=== PATIENT | female | born 1975 | race Caucasian/White ===

== ENCOUNTER 2016-05-14 17:29 | Emergency (ER) | payer MEDICARE, MEDICAID ==
[2016-05-14 17:45] VITALS: BP 136/76
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
[2016-05-14 18:17] LABS: Urine Bilirubin 1 mg/dl (NEGATIVE); Urine Blood 250 /ul (NEGATIVE); Urine Ketone Negative (NEGATIVE); Urine Nitrite Negative (NEGATIVE); Urine Protein 30 mg/dL (NEGATIVE); Urine Urobilinogen Normal (NORMAL); Urine pH 7.5 pH (5.0-7.0)
[2016-05-14] MEDS ORDERED: HYDROcodone/ACETAMINOPHEN 1 EACH TABLET PO ONE (18:22)
[2016-05-14] MEDS ORDERED: HYDROcodone/ACETAMINOPHEN 1 EACH TABLET ONE (18:26)
[2016-05-14 18:30] LABS: Urine Appearance Clear; Urine Color Yellow; Urine RBC 0-5 /hpf (0-5); Urine WBC None Seen /hpf (0-5)
[2016-05-14 18:31] LABS: Urine Bacteria 2+; Urine Fine Granular Cast 0-5 /LPF; Urine Mucus Few - 1+
[2016-05-14 18:37] LABS: Hematocrit 50.4 % (37.0-47.0); Hemoglobin 17.2 gm/dL (12.5-16.0); Mean Corpuscular Hemoglobin 30.7 pg (27-31); Mean Corpuscular Hgb Conc 34.1 g/dl (32-36); Mean Platelet Volume 8.8 fl (6.0-9.5); Neutrophil # 7.8 K/mm3 (1.3-6.0); Neutrophil % 59.6 % (42-75.0); Platelet Count 402 K/mm3 (150-450); Red Cell Distribution Width 13.4 % (11.5-14.0); White Blood Count 13.1 K/mm3 (4.0-10.5)
[2016-05-14 18:51] LABS: Albumin * 4.5 gm/dl (3.4-5.0); Anion Gap 17.4 mmol/L (6.8-13.8); BUN/Creatinine Ratio 12.3 (9.0-21.6); Bilirubin, Total 0.7 mg/dL (0.0-1.1); Ca. Corrected For Albumin 9.3 mg/dL (8.4-10.2); Carbon Dioxide 25.6 mmol/L (24-32.6); Total Protein 8.5 gm/dL (6.2-8.2)
--- OUTSIDE RECORDS SUMMARY | 2016-05-14 18:53 | XMS REPORT | Continuity of Care Document ---
:1975 Author Organization [facility] Address [place] [address] Care Team Providers Name Role Phone Greg Gotti Primary Care Provider [phone] Source Comments This disclosure is being made pursuant to the [employer] program and maynot contain all information available regarding this patient.[facility] Active Allergies and Adverse Reactions Allergen Noted Date Severity Reactions Comments Amoxicillin 10/05/2013 High Hives Bupropion Hcl 10/05/2013 High Hives Duloxetine Hcl 10/05/2013 Other (See Comments) Lurasidone Hcl 10/05/2013 Other (See Comments) Risperidone 10/05/2013 Other (See Comments) Current Medications Be aware that medications may not be up to date as of this document. Alwaysverify current medications with the patient. Prescription Sig. Disp. Refills Start Date End Date Status diclofenac (VOLTAREN) Take 75 mg by mouth. Active 75 MG EC tablet gabapentin (NEURONTIN) Take 600 mg by mouth. Active 600 MG tablet traZODone (DESYREL) 100 Take 100 mg by mouth. Active MG tablet DULoxetine (CYMBALTA) Take 60 mg by mouth Active 60 MG capsule daily. QUEtiapine Fumarate Take 300 mg by mouth Active (SEROQUEL XR) 300 MG 24 nightly. hr tablet Brexpiprazole (REXULTI Take by mouth. Active PO) minocycline Take 100 mg by mouth Active (MINOCIN,DYNACIN) 100 2 (two) times daily. MG capsule methocarbamol (ROBAXIN) Take 500 mg by mouth Active 500 MG tablet 3 (three) times daily. HYDROcodone-acetaminoph Take 1 tablet by Active en (NORCO) 10-325 MG mouth 3 (three) times per tablet daily as needed for Pain. Levonorgestrel (MIRENA, by Intrauterine Active 52 MG, IU) route. Active Problems No known active problems Most Recent Encounters Date Type Specialty Providers Description 02/21/2016 Orders Only Rheumatology Ze Reyna MD Nocturnal hypoxemia Social History Tobacco Use Types Packs/Day Years Used Date Current Every Day Smoker Alcohol Use Drinks/Week oz/Week Comments No Alcoholic Drinks/day: ALCOHOL USE: NON-DRINKER Last Filed Vital Signs Vital Sign Reading Time Taken Blood Pressure 126/90 02/06/2016 4:05 PM [facility] [employer] Pulse 100 02/06/2016 4:05 PM [employer] [employer] Temperature - - Respiratory Rate - - Height 1.753 m (5' 9") 03/29/2015 9:24 AM [employer] [employer] Weight 83.915 kg (185 lb) 02/06/2016 4:05 PM [employer] [employer] Body Mass Index 27.31 02/06/2016 4:05 PM [employer] [employer] Oxygen Saturation - - Plan of Care Health Maintenance Due Date Last Done Comments Pneumococcal Medium Risk 19-64 yo (1 of 1 - PPSV23) 1992 Tetanus/Pertussis (1 - Tdap) 1992 Pap Smear 1994 Influenza Immunization (#1) 2015 Results from Last 3 Months Not on file
[2016-05-14] MEDS ORDERED: MAGNESIUM HYDROXIDE 30 ML UDC PO ONE (20:36)
[2016-05-14] MEDS ORDERED: metroNIDAZOLE 250 MG TABLET PO ONE (20:36)
[2016-05-14] MEDS ORDERED: metroNIDAZOLE 250 MG TABLET ONE (20:42)
[2016-05-14] MEDS ORDERED: MAGNESIUM HYDROXIDE 30 ML UDC ONE (20:45)
== END 2016-05-14 20:52 | disposition home or self-care (01) ==
LOC: ER 17:29
DX: R10.9 Unspecified abdominal pain (principal); N76.0 Acute vaginitis; Z72.0 Tobacco use